=== PATIENT | male | born 1990 | race Caucasian/White ===

== ENCOUNTER 2018-12-22 13:59 | Day surgery (SDC) | payer OTHER ==
[~2018-12-22 13:59] MED LIST: DESFLURANE 15 MIN; LIDOCAINE 2% (SDV) 5 ML INJ; SUCCINYLCHOLINE CHLORIDE 100 MG/5 ML SYG IV
[2018-12-22] MEDS ORDERED: MEPERIDINE 25 MG INJ IV (15:30)
[2018-12-22] MEDS ORDERED: ALBUTEROL 0.083% (NEB) 2.5 MG/3 ML AMP HHN (15:30)
[2018-12-22] MEDS ORDERED: METOCLOPRAMIDE 10 MG INJ IV (15:30)
[2018-12-22] MEDS ORDERED: FENTAnyl 50 MCG/ML VIAL IV ×3 (15:30)
[2018-12-22] MEDS ORDERED: HYDROmorphONE 1 MG/5 ML IV SYRINGE IV (15:30)
[2018-12-22] MEDS ORDERED: DIPHENHYDRAMINE 50 MG INJ IV (15:30)
[2018-12-22] MEDS ORDERED: FENTAnyl 50 MCG/ML VIAL (16:11)
[2018-12-22] MEDS ORDERED: MIDAZOLAM 1 MG/ML 2 ML INJ (16:13)
[2018-12-22] MEDS: BACITRACIN/POLYMYXIN 28.35 GM OINT TOP (16:37)
[2018-12-22] MEDS: COCAINE 4% 4 ML TOP (16:38)
[2018-12-22] MEDS: LIDOCAINE 1%/EPI (1:100,000) (MDV) 20 ML (16:38)
[2018-12-22] MEDS ORDERED: PROPOFOL 20 ML (16:48)
[2018-12-22] MEDS ORDERED: ROCURONIUM 50 MG INJ (16:48)
[2018-12-22] MEDS ORDERED: CEFAZOLIN 1 GM INJ (16:48)
[2018-12-22] MEDS ORDERED: SUGAMMADEX SODIUM 200 MG/2 ML VIAL IV (16:48)
[2018-12-22] MEDS: ONDANSETRON 4 MG INJ IV (17:18)
[2018-12-22] MEDS: HYDROmorphONE 1 MG/5 ML IV SYRINGE IV ×3 (17:19→17:34)
[2018-12-22] MEDS ORDERED: OXYCODONE/ACETAMINOPHEN (5/325) TAB PO (17:30)
[2018-12-22] MEDS: OXYCODONE/ACETAMINOPHEN (5/325) TAB PO (17:50)
== END 2018-12-22 19:01 | disposition home or self-care (01) ==
LOC: SDS 13:59
DX: J34.2 Deviated nasal septum (principal)
CPT/HCPCS: 30140